=== PATIENT | male | born 1990 | race Hispanic/Latino ===

== ENCOUNTER 2021-06-11 20:35 | Emergency (ER) | payer OTHER ==
[~2021-06-11] VITALS: Ht 177.8 cm; Wt 74.4 kg
[2021-06-11 23:37] VITALS: BP 135/83
[2021-06-11] MEDS: CEFTRIAXONE 1G VIAL IM STA (23:58)
[2021-06-11] MEDS: IBUPROFEN 800 MG TAB PO STA (23:58)
[2021-06-12] MEDS ORDERED: GUAI-1274 PO (00:08)
[2021-06-12] MEDS ORDERED: IBUP-2088 PO (00:08)
[2021-06-12] MEDS ORDERED: AZIT1PAC PO (00:08)
== END 2021-06-12 00:23 | disposition home or self-care (01) ==
LOC: EDH 20:35
DX: J06.9 Acute upper respiratory infection, unspecified (principal); Z20.822 Contact with and (suspected) exposure to COVID-19
CPT/HCPCS: 71045; 87635; 87804 ×2; 87880; 96372; 99284; C9803; J0696